=== PATIENT | male | born 1985 | race African-American/Black ===

== ENCOUNTER 2016-08-29 07:00 | Inpatient (IN) | payer OTHER ==
[~2016-08-29] VITALS: Ht 198.1 cm; Wt 121.1 kg
[2016-08-30] VITALS (10 sets, daily range): BP systolic 134–166; BP diastolic 70–104
[2016-08-30] MEDS ORDERED: OXYCODONE HCL15 M1 ORAL (05:54)
[2016-08-30] MEDS ORDERED: oxyCODONE 5mg IR tab ORAL PRN (06:15)
--- NOTE | 2016-08-30 06:39 | Anethesia Preoperative Eval ---
Anesthesia Pre-op PMH/ROS General Date of Evaluation: Aug 30, 2016 Time of Evaluation: 07:26 Anesthesiologist: Jimena ASA Score: ASA 2 Mallampati Score Class I : Soft palate, uvula, fauces, pillars visible Class II: Soft palate, uvula, fauces visible Class III: Soft palate, base of uvula visible Class IV: Only hard plate visible Mallampati Classification: Class II Surgeon: Essie Diagnosis: Back Pain Surgical Procedure: ALIF L4-5, L5-S1, Post Fusion Screws, L4-5, L5-S1 Anesthesia History: none Family History: no anesthesia problems Allergies: Coded Allergies: No Known Allergies (Unverified , 08/28/16) Medications: see eMAR Past Medical History Cardiovascular: Reports: HTN, arrhythmia - Heart Murmur, no Physical limitations. Anesthesia Pre-op Phys. Exam Physician Exam Last Vital Signs Date Time Temp Pulse Resp B/P Pulse Ox O2 Delivery O2 Flow Rate FiO2 08/30/16 05:40 97.6 62 18 134/70 99 Room Air Constitutional: NAD Neurologic: CN 2-12 intact Cardiovascular: RRR Respiratory: CTA Gastrointestinal: S/NT/ND Airway Exam Mallampati Score: Class II MO: full ROM: full Teeth: intact Anesthesia Pre-op A/P Risk Assessment & Plan Assessment: ASA 2 Plan: GA, BIS, Glidescope Status Change Before Surgery: No Pre-Antibiotics Dru Grams Ancef IV Given Within 1 Hr of Incision: Yes Time Given: 07:46 Cornelius Hess MD Aug 30, 2016 06:38
[2016-08-30] MEDS ORDERED: Thrombin 5000 units TOPIC ONE (06:41)
[2016-08-30] MEDS ORDERED: Surgicel 4in x 8in TOPIC ONE (06:41)
[2016-08-30] MEDS ORDERED: Bupivacaine w/Epi 0.5% 30ml Vial INJ ONE (06:42)
[2016-08-30] MEDS ORDERED: Bacitracin 50000 Units Vial ONE (06:42)
[2016-08-30] MEDS ORDERED: Lacri-Lube Opth Oint 3.5gm ONE (06:42)
[2016-08-30] MEDS ORDERED: Heparin 5000 units/ml inj ONE (06:42)
[2016-08-30] MEDS ORDERED: Vancomycin 1gm inj IVPB ONE ×2 (06:43→12:06)
[2016-08-30] MEDS ORDERED: Norco 7.5mg/325mg tab ORAL PRN (06:45)
[2016-08-30] MEDS ORDERED: Midazolam 2mg/2ml Inj IVP PRN (06:45)
[2016-08-30] MEDS ORDERED: Metoclopramide 10mg/2ml Inj IVP PRN (06:45)
[2016-08-30] MEDS ORDERED: Ketorolac 30mg Inj IV PRN (06:45)
[2016-08-30] MEDS ORDERED: DiphenhydrAMINE 50mg/ml Inj IVP PRN (06:45)
[2016-08-30] MEDS ORDERED: LORazepam Inj 2mg/ml 1ml IV PRN (06:45)
[2016-08-30] MEDS ORDERED: Oxycodone/Acetaminophen 5-325 ORAL PRN (06:45)
[2016-08-30] MEDS ORDERED: Meperidine 25mg/ml Inj IV PRN (06:45)
[2016-08-30] MEDS ORDERED: Atropine Inj 1mg/10ml Syr IV PRN (06:45)
[2016-08-30] MEDS ORDERED: Hydromorphone 0.5mg/0.5ml inj IVP PRN (06:45)
[2016-08-30] MEDS ORDERED: Norco 5mg/325mg tab ORAL PRN (06:45)
[2016-08-30] MEDS ORDERED: Labetalol 5mg/ml 20ml vial IV PRN (06:45)
[2016-08-30] MEDS ORDERED: fentaNYL 100 mcg/2 mL IV PRN (06:45)
[2016-08-30] MEDS ORDERED: Ketorolac 60mg Inj IV PRN (06:45)
[2016-08-30] MEDS ORDERED: LR 1000ml 1,000 ML IVLG SCH (07:00)
[2016-08-30] MEDS ORDERED: Dexamethasone 20mg/5ml IVP ONE (07:00)
[2016-08-30] MEDS ORDERED: Propofol 10mg/ml 100ml btl IV ONE (07:00)
[2016-08-30] MEDS ORDERED: ceFAZolin sod 1 GM in NS 55 ML IVPB ONE (07:00)
[2016-08-30] MEDS ORDERED: Acetaminophen (Non formulary) 100 ML IV ONE (07:15)
--- NOTE | 2016-08-30 07:17 | Pre-Procedure Note/Attestation ---
Pre-Procedure Note/Attestation Complete Prior to Procedure Planned Procedure: not applicable Procedure Narrative: anterior interbody reconstruction fusion L4-5 L5-S1 anterior internal fixation L4-5-S1 Posterior Pedicle Screw instrumentation L4-L5-S1 Bilateral Posterolateral Fusion L4-L5-S1 Indications for Procedure Pre-Operative Diagnosis: Post trauma backpain L4-5-S1 L5 spondylolysis L5-S1 I/V spondylolisthesis Attestation I attest that I discussed the nature of the procedure; its benefits; risks and complications; and alternatives (and the risks and benefits of such alternatives ), prior to the procedure, with the patient (or the patient's legal sales representative raw fibers). I attest that, if there was a reasonable possibility of needing a blood transfusion, the patient (or the patient's legal sales representative raw fibers) was given the [place] Department [employer] standardized written summary, pursuant to the Erwin Owen Blood Safety Act ([place] Health and Safety Code # 1645, as amended). I attest that I re-evaluated the patient just prior to the surgery and that there has been no change in the patient's H&P, except as documented below: POPEYE DAWSON Aug 30, 2016 07:17
[2016-08-30] MEDS ORDERED: NS Irrig 1000ml ONE (07:30)
[2016-08-30] MEDS ORDERED: Succinylcholine 20mg/ml 10ml vial ONE (07:30)
[2016-08-30] MEDS ORDERED: Zemuron 50mg/5ml Inj IV ONE (07:30)
[2016-08-30] MEDS ORDERED: fentaNYL 250mcg/5ml ONE (07:30)
[2016-08-30] MEDS ORDERED: Sterile Water Irrig 1000ml IRRIG ONE (07:30)
[2016-08-30] MEDS ORDERED: fentaNYL 100 mcg/2 mL IV ONE (07:30)
[2016-08-30] MEDS ORDERED: Neostigmine 1mg/ml 10ml Inj ONE (07:30)
[2016-08-30] MEDS ORDERED: LR 1000ml ONE (07:30)
[2016-08-30] MEDS ORDERED: Labetalol 5mg/ml 20ml vial IV ONE (07:30)
[2016-08-30] MEDS ORDERED: Dexamethasone 4mg/ml vial ONE (07:30)
[2016-08-30] MEDS ORDERED: Glycopyrrolate 0.2mg/ml 1ml Vial ONE (07:30)
[2016-08-30] MEDS ORDERED: Lidocaine 1% Plain 30 ml INJ ONE (07:30)
[2016-08-30] MEDS ORDERED: Rate Change PCA 1 Each MISC PRN (08:00)
[2016-08-30] MEDS ORDERED: PCA HYDROmorphone 1mg/ml 30 ML IV PRN (08:00)
--- NOTE | 2016-08-30 08:04 | Immediate Post-Op Evaluation ---
Immediate Post-Op Evalulation Immediate Post-Op Evalulation Procedure: ALIF L4-5, L5-S1, Post Fusion Screws, L4-5, L5-S1 Date of Evaluation: Aug 30, 2016 Time of Evaluation: 14:27 IV Fluids: 1500 LR Blood Products: 0 Estimated Blood Loss: 75 Urinary Output: 400 Blood Pressure Systolic: 153 Blood Pressure Diastolic: 94 Pulse Rate: 88 Respiratory Rate: 16 O2 Sat by Pulse Oximetry: 99 Temperature (Fahrenheit): 97.3 Pain Score (1-10): 3 Complications 0 Patient Status: awake, reacts, patent, extubated, none Hydration Status: adequate Dru Grams Ancef IV Given Within 1 Hr of Incision: Yes Time Given: 07:46 Cornelius Hess MD Aug 30, 2016 08:04
--- NOTE | 2016-08-30 08:05 | 48 Hour Post Anesthesia Eval ---
Post Anesthesia Evaluation Procedure: ALIF L4-5, L5-S1, Post Fusion Screws, L4-5, L5-S1 Date of Evaluation: Aug 30, 2016 Time of Evaluation: 16:42 Blood Pressure Systolic: 143 0: 78 Pulse Rate: 77 Respiratory Rate: 18 Temperature (Fahrenheit): 98.3 O2 Sat by Pulse Oximetry: 100 Airway: patent Nausea: No Vomiting: No Pain Intensity: 2 Hydration Status: adequate Cardiopulmonary Status: Stable Mental Status/LOC: patient returned to baseline Follow-up Care/Observations: 0 Post-Anesthesia Complications: 0 Follow-up care needed: N/A Cornelius Hess MD Aug 30, 2016 08:05
[2016-08-30] MEDS ORDERED: Lidocaine 1% 10mg/ml/Epi 0.005mg/ml 30ml vial INJ ONE (13:37)
--- NOTE | 2016-08-30 13:51 | Brief Operative Note ---
Immediate Post Operative Note Operative Note Pre-op Diagnosis: Post trauma backpain L4-5-S1 L5 spondylolysis L5-S1 I/V spondylolisthesis Procedure: Correction Deformity Hemivertebrectomy L4,L5, S1 LT Cage internal fixation, BMP fusion L4-5, L5-S1 SSEP Xray pedicle Scrwe instrumentation L4, L5, S1 Posterolateral Fusion L4-L5-S1 Local Body Habitus. (6''7" >280 lbs. Hemilaminectomy L5 Post-op Diagnosis: same as pre-op Findings: consistent w/pre-op dx studies Surgeon: Essie Jerry Facs Teacher: Daphne FITZGERALD Anesthesiologist: Jimena ROSSI Anesthesia: general Specimen: none Complications: none Condition: stable Estimated Blood Loss: volume - 150 cc POPEYE DAWSON Aug 30, 2016 13:50
--- NOTE | 2016-08-30 14:20 | Diagnostic Imaging Report ---
Indication: PAIN, intraoperative imaging Technique: Intraoperative images Comparison: None Findings: Localizer image demonstrates surgical tools anterior to what are presumably the L5-S1 and L4-5 discs. Subsequent images document anterior fusion at L4-5, placement of disc spacers at L4-5 and L5-S1, and posterior fusion hardware bridging L4-S1. Impression: Intraoperative imaging, as described
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
[2016-08-30] MEDS: PCA shift volume MISC SCH ×2 (15:00→23:00)
[2016-08-30] MEDS: Dronabinol 2.5mg Cap ORAL SCH ×2 (16:43→21:28)
[2016-08-30] MEDS: HYDROmorphone 1mg/ml Carpuject SUBQ PRN (16:58)
[2016-08-30] MEDS: D5 1/2NS 1,000 ML IV SCH (18:12)
[2016-08-30] MEDS: ceFAZolin sod 1 GM in D5W 55 ML IVPB SCH (19:09)
--- NOTE | 2016-08-30 20:49 | Cardiology Progress Note ---
Assessment/Plan Assessment/Plan post traumatic back pain elevated bp soem may be related t o pain he did have mild untreaeted htn as out pt rbbb LVH preop echo normla lv function but had mod LVH lwo dose antihypertensive dvt ppx home when has bm eat when has bm [id number] Objective Last 24 Hour Vital Signs Date Time Temp Pulse Resp B/P Pulse Ox O2 Delivery O2 Flow Rate FiO2 08/30/16 16:45 166/95 08/30/16 16:00 97.5 73 20 166/95 100 Nasal Cannula 3.0 08/30/16 15:35 18 08/30/16 15:25 97.6 78 16 158/89 100 Nasal Cannula 3.0 08/30/16 15:20 16 08/30/16 15:10 80 18 160/89 100 Nasal Cannula 3.0 08/30/16 15:05 15 08/30/16 14:55 79 16 161/93 100 Nasal Cannula 3.0 08/30/16 14:50 16 08/30/16 14:40 83 13 152/93 100 Nasal Cannula 3.0 08/30/16 14:25 85 16 163/104 100 Simple Mask 10.0 08/30/16 14:21 77 18 100 08/30/16 14:20 83 15 155/92 95 Simple Mask 10.0 08/30/16 14:19 88 16 99 08/30/16 14:16 97.3 87 24 153/94 95 Simple Mask 10.0 08/30/16 05:40 97.6 62 18 134/70 99 Room Air Intake and Output 08/29/16 08/30/16 19:00 07:00 # Voids 1 ANTHONY HAMILTON Aug 30, 2016 20:49
[2016-08-30] MEDS: oxyCODONE 5mg IR tab ORAL PRN (21:28)
[2016-08-31] VITALS: BP 136/84
[2016-08-31] MEDS: ceFAZolin sod 1 GM in D5W 55 ML IVPB SCH ×3 (00:35→17:09)
[2016-08-31] MEDS: oxyCODONE 5mg IR tab ORAL PRN ×4 (00:36→11:47)
[2016-08-31] MEDS: D5 1/2NS 1,000 ML IV SCH ×4 (00:44→21:40)
--- NOTE | 2016-08-31 00:48 | Operative Note - Dictated ---
DATE OF OPERATION: 08/30/2016 SURGEON: 1. Jordan Fountain Ph.D. M.D. 2. Jj Jerry M.D., vascular surgery. TILE CLASSIFIER: LIA Anglin. ANESTHESIOLOGIST: Cornelius Hess M.D. ANESTHESIA: General with intubation. PREOPERATIVE DIAGNOSES: Posttraumatic severe lumbosacral back pain, lumbar spine instability with spondylolysis, and spondylolisthesis. POSTOPERATIVE DIAGNOSES: Posttraumatic severe lumbosacral back pain, lumbar spine instability with spondylolysis, and spondylolisthesis. OPERATIVE PROCEDURE: Anterior (please see exposure and closure report dictation by Dr. Jerry with Dr. Fountain assist). L4-L5 interbody reconstruction fusion, bilateral LT cages, bone morphogenic protein, correction of deformity, anterior internal plate fixation L4-L5, hemivertebrectomy, inferior L4, superior L5, inferior L5, superior S1, interbody reconstruction, correction of deformity L5-S1 and bilateral LT cages. Intraoperative fluoroscopy interpreted by surgeons. SSEP monitoring. EMG monitoring. Posterior-separate incision, change of all instrumentation, repositioning of the patient from supine to prone. Pedicle screw instrumentation, L4-L5-S1. Pedicle screw stimulation. Bilateral posterolateral fusion L4-L5-S1. L5 hemilaminotomy bilateral. Local anesthetic applied by surgeon. Patient's body habitus. Increased complexity of surgery/duration of surgery. The patient is 6 foot 7 inches, greater than 250 pounds in weight. Large in shape patient physically not fat. PROCEDURE: The patient was brought to the operating room and in supine position, general anesthesia with intubation was induced. Intravenous antibiotics and intravenous Decadron were administered 30 minutes prior to incision time. After appropriate positioning, the abdomen was sterilely prepped and draped free in usual sterile fashion. Please see exposure and closure operative report Dr. Jerry with Dr. Fountain assist. Identification of L5 and S1 were made with fluoroscopic imaging with markers in place. L5-S1. Hemivertebrectomy, inferior L5, superior S1 was performed with utilization of bilateral LT cages 20 mm in depth and 16 mm in diameter. Bone morphogenic protein within the cages for interbody fusion. Excellent positioning and fixation. Attention was turned to the L4-L5 interval. Annulotomy was performed. Diskectomy to the long posterior longitudinal ligament. Hemivertebrectomy, inferior L4, superior L5. Interpositional grafting with bilateral 16 mm x 23 mm LT cages containing bone morphogenic protein. Anterior internal plate fixation with 2 screws cephalad, 2 screws caudad in a compressive fashion. Screws were placed and locked into position. After the anterior abdomen was closed and bandage, the patient was carefully turned from the prone to supine position. Grafts were incorporated in fibrin glue. Closure Dr. Jerry. The patient was carefully turned from the supine to the prone position with change of operating table. All the instruments were changed. All staff/physicians re-sterilely prepared after patient positioning and the back was sterilely prepped and draped free in usual sterile fashion. A longitudinal incision over the appropriate interval was sharply placed in the dermis and epidermis. Electrocautery dissection was carried through the subcutaneous tissue to the level lumbodorsal fascia incised right and left of midline over the involved intervals. Angulation just deep of the L5 lamina noted with the spondylolisthesis. Transverse processes of L4 and L5 and sacral alar bilaterally exposed. Decorticated. Interpositional grafting for posterolateral fusion with cortical cancellous graft L4-L5-S1. Hemilaminotomy L5 bilaterally. Pedicle screw instrumentation, L4, L5, S1 with fluoroscopic guidance. Excellent positioning. The screws stimulation normal. Interpositional rods clamped into position and torqued appropriately. Wound was copiously irrigated with antibiotic-containing saline. A 2 g of vancomycin powder was placed. Sequential reapproximation of the lumbodorsal fascia followed with drain placement to drain the lumbodorsal fascia and subcutaneous tissue. Subcutaneous tissue was reapproximated with multiple layers of Vicryl suture material. Dermis and epidermis were further reapproximated. Drain was externalized through a separate puncture site. Local anesthetic of bilateral lateral aspects of the wound 1% lidocaine with epinephrine. Sterile bandage was placed after the drain was attached sterilely to a suction bulb. The patient was carefully turned from the prone to supine position on the transport bed where he was awakened, extubated and transported to postoperative recovery in good stable condition. Jordan Fountain M.D. DR: SILVIA JOB#: [id number] CC: RITA
--- NOTE | 2016-08-31 00:58 | Operative Note - Dictated ---
DATE OF OPERATION: 08/30/2016 VASCULAR SURGEON: Jj Jerry M.D. SPINE SURGEON: Jordan Fountain M.D. PREOPERATIVE DIAGNOSIS: Degenerative disk disease. POSTOPERATIVE DIAGNOSIS: Degenerative disk disease. PROCEDURES PERFORMED: 1. Anterior retroperitoneal exposure of L4-5 vertebral interspace. 2. Anterior retroperitoneal exposure of L5-S1 vertebral interspace. INDICATION: The patient is a very pleasant gentleman who was seen prior to surgery. He has been scheduled for anterior fusion of L4-5 and L5-S1. He is approximately 6 feet 7 and weighs over 250 pounds. He has no prior anterior abdominal surgery. No history of deep venous thrombosis or bleeding complications. He has been made aware of the need for large abdominal incision. The need for mobilization of vascular structures and the possibility of vascular injury were carefully discussed. He understands the possible risk for blood transfusion and possible risk of deep venous thrombosis. DESCRIPTION OF FINDINGS: A vertical midline incision was used. A left retroperitoneal approach was used. There was no vascular injury. There was no peritoneal or ureteral violation. There was somewhat transitional anatomy with respect to the iliac vessels. L4-5 was exposed with retraction of the left iliac vessels towards the patient's right; however, it was displaced caudally, and there was somewhat increased traction on the left common iliac vein. However, adequate exposure will be obtained without injury. L5-S1 was oriented very caudally and required extension incision distally to allow for approach. On completion, the patient's peritoneum and ureter were intact. Iliac vessels were intact. Blood loss was 50 mL. There were palpable femoral and dorsalis pedis pulses on completion. DESCRIPTION OF PROCEDURE: The patient was taken to the operating room, and general anesthesia was used. IV antibiotics were given. Liang catheter was placed. The patient's abdomen was prepped and draped. Appropriate time-out procedure was taken. A vertical midline incision was made infraumbilically. The anterior fascia was incised longitudinally midline. A plane was identified posterior to the left rectus abdominis and developed posterolaterally towards the patient's left. The retroperitoneal space was entered below the arcuate line. The peritoneum and ureter were mobilized towards the patient's right exposing the left common iliac vessels. Initially dissection was carried on the undersurface of the left common iliac vein. The median sacral artery and vein were identified and ligated with vascular clips and divided. The soft tissues were mobilized off the anterior surface of L5-S1, and the Omni retractor was set in place. Fluoroscopy was then used to confirm the appropriate level, and then instrumentation and fusion performed at L5-S1 and dictated separately. On completion, retractor was then repositioned above the iliac bifurcation. Dissection was carried on the left side of the left common iliac artery and vein. Overlying lymphatics were ligated with vascular clips. The iliolumbar vein was identified and encircled using a 2-0 silk tie. It was triply ligated proximally and distally with vascular clips and divided. The L4 segmental artery and vein were also identified and ligated with vascular clips. This allowed us to mobilize the left iliac vessels towards the patient's right exposing the anterior surface of L4-5. Once again, the Omni retractor was set in place. Fluoroscopy was used to confirm the appropriate level, and then instrumentation and fusion performed at L4-5 and dictated separately. On completion, retractor was gently removed. The peritoneum and ureter intact. Iliac vessels were intact. Anterior fascia was closed using #1 PDS in running fashion. The skin and subcutaneous tissue were closed using 3-0 Vicryl and 4-0 Monocryl in running subcuticular closure technique. ESTIMATED BLOOD LOSS: Less than 100 mL. COMPLICATION: None. Jj Jerry M.D. DR: DEWEY JOB#: [id number] CC:
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
[2016-08-31] MEDS: HYDROmorphone 1mg/ml Carpuject SUBQ PRN ×3 (03:27→18:37)
[2016-08-31 04:00] VITALS: BP 126/67
[2016-08-31] MEDS: Dronabinol 2.5mg Cap ORAL SCH ×3 (05:41→21:40)
[2016-08-31] MEDS: PCA shift volume MISC SCH ×3 (07:00→17:14)
[2016-08-31 07:55] LABS: BASOPHILS % (AUTO) 0.7 % (0.0-2.0); LYMPHOCYTES % (AUTO) 16.2 % (20.0-45.0); MEAN CORPUSCULAR HEMOGLOBIN 30.2 PG (27.0-31.0); MEAN CORPUSCULAR HGB CONC 34.2 G/DL (32.0-36.0); MEAN CORPUSCULAR VOLUME 88 FL (80-99); MEAN PLATELET VOLUME 9.7 FL (6.5-10.1); NEUTROPHILS % (AUTO) 73.1 % (45.0-75.0); PLATELET COUNT 208 K/UL (150-450); RED CELL DISTRIBUTION WIDTH 11.5 % (11.6-14.8); WHITE BLOOD COUNT 12.8 K/UL (4.8-10.8)
[2016-08-31 08:20] LABS: ALANINE AMINOTRANSFERASE 28 U/L (3-41); ALBUMIN/GLOBULIN RATIO 1.3 (1.0-2.7); ANION GAP 13 (5-15); ASPARTATE AMINO TRANSFERASE 30 U/L (5-40); CALCIUM 8.9 mg/dL (8.6-10.2); CARBON DIOXIDE 27 mEQ/L (20-30); CHLORIDE 95 mEQ/L (98-107); CREATININE 1.1 mg/dL (0.7-1.2); GLOMERULAR FILTRATION RATE > 60 mL/min (>60); HEMOLYSIS 2; POTASSIUM 4.5 mEQ/L (3.4-4.9); SODIUM 135 mEQ/L (135-145); TOTAL PROTEIN 7.1 g/dL (6.6-8.7)
[2016-08-31 08:23] VITALS: BP 121/65
[2016-08-31 12:45] VITALS: BP 147/88
[2016-08-31] MEDS: PCA HYDROmorphone 1mg/ml 30 ML IV PRN ×2 (13:09→17:14)
[2016-08-31] MEDS ORDERED: D5 1/2NS 1000ml IV ONE (13:38)
[2016-08-31 16:00] VITALS: BP 139/74
--- NOTE | 2016-08-31 16:08 | Cardiology Progress Note ---
Assessment/Plan Status: stable, progressing Status Narrative s/p lumbar surgery - post op d1 HTN - mild elevation of BP , possibly due to post op pain Assessment/Plan Continue norvasc for BP control - titrate Continue SHEARER HELPER/ pain management Post op care per Dr. Fountain Subjective ROS Limited/Unobtainable: No Subjective c/o back pain Objective Last 24 Hour Vital Signs Date Time Temp Pulse Resp B/P Pulse Ox O2 Delivery O2 Flow Rate FiO2 08/31/16 13:39 98.0 08/31/16 12:45 98.0 76 18 147/88 99 Room Air 08/31/16 12:00 20 08/31/16 10:37 98.1 08/31/16 08:23 98.1 90 20 121/65 99 Room Air 08/31/16 08:00 18 08/31/16 04:00 97.7 76 20 126/67 99 Nasal Cannula 3.0 08/31/16 04:00 18 08/31/16 01:36 97.3 08/31/16 00:00 18 08/31/16 00:00 98.2 84 20 136/84 99 Nasal Cannula 3.0 08/30/16 21:27 80 166/95 08/30/16 20:00 97.3 84 20 145/79 97 Nasal Cannula 3.0 08/30/16 20:00 18 08/30/16 16:45 166/95 General Appearance: WD/WN, alert, mild distress EENT: PERRL/EOMI Neck: no JVD Rhythm: NSR Cardiovascular: normal rate, regular rhythm, no gallop/murmur Respiratory/Chest: lungs clear, other - clear anteriorly Abdomen: non tender, decreased bowel sounds, tender, other - incision site covered w/ dry dsg Extremities: no swelling Intake and Output 08/30/16 08/31/16 19:00 07:00 Intake Total 1700 ml 1445 ml Output Total 535 ml 3080 ml Balance 1165 ml -1635 ml Intake Oral 410 ml IV Total 1700 ml 1035 ml Output Urine Total 450 ml 2950 ml Drainage Total 10 ml 130 ml Estimated Blood Loss 75 ml Laboratory Tests Test 08/31/16 07:00 White Blood Count 12.8 K/UL (4.8-10.8) H Red Blood Count 4.40 M/UL (4.70-6.10) L Hemoglobin 13.3 G/DL (14.2-18.0) L Hematocrit 38.8 % (42.0-52.0) L Mean Corpuscular Volume 88 FL (80-99) Mean Corpuscular Hemoglobin 30.2 PG (27.0-31.0) Mean Corpuscular Hemoglobin Concent 34.2 G/DL (32.0-36.0) Red Cell Distribution Width 11.5 % (11.6-14.8) L Platelet Count 208 K/UL (150-450) Mean Platelet Volume 9.7 FL (6.5-10.1) Neutrophils (%) (Auto) 73.1 % (45.0-75.0) Lymphocytes (%) (Auto) 16.2 % (20.0-45.0) L Monocytes (%) (Auto) 10.0 % (1.0-10.0) Eosinophils (%) (Auto) 0.0 % (0.0-3.0) Basophils (%) (Auto) 0.7 % (0.0-2.0) Sodium Level 135 mEQ/L (135-145) Potassium Level 4.5 mEQ/L (3.4-4.9) Chloride Level 95 mEQ/L (98-107) L Carbon Dioxide Level 27 mEQ/L (20-30) Anion Gap 13 (5-15) Blood Urea Nitrogen 16 mg/dL (7-23) Creatinine 1.1 mg/dL (0.7-1.2) Estimat Glomerular Filtration Rate > 60 mL/min (>60) Glucose Level 125 mg/dL (74-106) H Calcium Level 8.9 mg/dL (8.6-10.2) Total Bilirubin 0.5 mg/dL (0.0-1.2) Aspartate Amino Transf (AST/SGOT) 30 U/L (5-40) Alanine Aminotransferase (ALT/SGPT) 28 U/L (3-41) Alkaline Phosphatase 51 U/L (40-129) Total Protein 7.1 g/dL (6.6-8.7) Albumin 4.1 g/dL (3.5-5.2) Globulin 3.0 g/dL Albumin/Globulin Ratio 1.3 (1.0-2.7) DAVIN CROWELL Aug 31, 2016 16:08
--- NOTE | 2016-08-31 19:58 | Progress Note ---
DATE: 08/31/2016 ACUTE PAIN MANAGEMENT PHYSICIAN PROGRESS NOTE MEDICATIONS: Medication administration record reviewed. Medications include IV fluids, Protonix, Norvasc, Marinol, antibiotics, JOURNEYMAN PRESS OPERATOR, Dilaudid and p.r.n. medications include Benadryl, Catapres, Cepacol, magnesium citrate, Dilaudid, Mylanta, Phenergan, Soma, Zofran, oxycodone and Narcan. LABORATORY AND DIAGNOSTIC DATA: Laboratory studies from this morning 08/31/2016 shows white count 13, hematocrit 39, and platelets 210,000. Sodium 135, potassium 4.5, chloride 95, bicarbonate 27, BUN 16, creatinine 1.1 and glucose 125. Calcium 8.9. Total bilirubin 0.5. AST 30, ALT 28, and alkaline phosphatase 51. Total protein 7.1. Albumin 4.1. Vital signs, pain level 9/10 on the visual pain scale, afebrile, pulse 90, respirations 20, blood pressure 121/55, and oxygen saturation 99% on supplemental oxygen. I spent over 60 minutes in consultation today. I saw the patient at the bedside with the charge nurse, Lamar PEREZ. I discussed the case with the floor nurse, CHRIS Chand from today's day shift along with the night nurse last night, CHRIS Holder. I also spoke with the surgeon, Dr. Jordan Fountain in detail. There has been no evidence for over-sedation. He has used nearly 2 mg of Dilaudid every hour with his JOURNEYMAN PRESS OPERATOR unit. Additionally, he has been receiving his scheduled Marinol and requesting breakthrough oxycodone and Soma. The patient has a significant pain. He is neurologically intact. Moving all extremities x4. He does have positive bowel sounds, but is not yet passing positive flatus. He will remain NPO except for medications while we await mandaeism of bowel function after his ALIF procedure. The patient does have significant tightness in his back. I did encourage continued use of the p.r.n. medications in combination with a generous dosing with JOURNEYMAN PRESS OPERATOR unit. I will increase JOURNEYMAN PRESS OPERATOR button demand dose with 0.4 mg. We will continue a 12 minute lockout for safety profile. I did encourage continued use of the breakthrough Dilaudid injections. Originally, the patient was hesitant to accept the subcutaneous Dilaudid injection. After receiving a dose, he admits that the extra bolus dose is helpful and he will continue to request the p.r.n. subcutaneous injection. I will increase the dose from 1 mg to 1.5 mg for better analgesia. At home, the patient has been using his oxycodone 15 mg, which is half of a tablet. The patient agrees that he can handle a higher 30 mg dose here after surgery. With his scheduled Marinol and p.r.n. Soma, I believe the patient should be able to advance with physical therapy. We did ask the physical therapist to finding an extra tall front wheel walker, as the patient is 6 foot 7 inches. The patient's , is at the bedside with her two kids, ages 3 and 7. is pleasant. After I reassured them that matters are proceeding as-plan and on schedule after his extensive lumbar spine instrumentation surgery. José Luis Sánchez M.D. DR: BRIONNA JOB#: [id number] CC:
[2016-08-31 20:00] VITALS: BP 132/78
[2016-09-01] VITALS: BP 112/70
[2016-09-01] MEDS: oxyCODONE 5mg IR tab ORAL PRN ×2 (00:23→05:15)
[2016-09-01] MEDS: ceFAZolin sod 1 GM in D5W 55 ML IVPB SCH ×2 (00:28→08:58)
[2016-09-01 04:00] VITALS: BP 139/82
[2016-09-01] MEDS: D5 1/2NS 1,000 ML IV SCH ×4 (05:04→23:47)
[2016-09-01] MEDS: Dronabinol 2.5mg Cap ORAL SCH ×3 (06:00→21:17)
[2016-09-01] MEDS: PCA shift volume MISC SCH (07:16)
[2016-09-01 08:00] VITALS: BP 132/70
[2016-09-01] MEDS: HYDROmorphone 1mg/ml Carpuject SUBQ PRN ×2 (09:07→23:47)
[2016-09-01] MEDS ORDERED: D5 1/2NS 1000ml IV ONE (11:12)
--- NOTE | 2016-09-01 11:43 | General Progress Note ---
Progress Note Progress Note POD 2 limited ambulation PT resolution preop back pain. Incisional Pain only no lower extremity radiculopathy / subjective weakness Hemovac d/c n/c intact bilateral lower extremities bandage clean dry intact abdomen distended - minimal bowel sounds. Minimal flatus last night plam: increase gait training carranza d/princess observe no bed rolon once cleared by PT for transfer - out of bed self ambulation but must be accompanied by nurse anticipate advance diet this evening if bowel movement - No bowel movement - No diet POPEYE Ruvalcaba Sep 01, 2016 11:43
[2016-09-01 12:07] VITALS: BP 145/96
[2016-09-01] MEDS: PCA HYDROmorphone 1mg/ml 30 ML IV PRN ×2 (15:00→21:22)
[2016-09-01 16:00] VITALS: BP 114/64
--- NOTE | 2016-09-01 17:07 | Cardiology Progress Note ---
Assessment/Plan Status: stable, progressing Status Narrative s/p lumbar surgery - post op d2 Progressing w/ ambulation, transitioning to oral meds from STOCK DIGGER HTN - mild elevation of BP , possibly due to post op pain Assessment/Plan continue current dose of norvasc for htn Pain management, post-op care per Dr. Fountain. Subjective ROS Limited/Unobtainable: No Subjective c/o back pain. Ambulating w/ walker Objective Last 24 Hour Vital Signs Date Time Temp Pulse Resp B/P Pulse Ox O2 Delivery O2 Flow Rate FiO2 09/01/16 16:00 18 09/01/16 16:00 98.2 81 20 114/64 93 Room Air 09/01/16 15:30 97.5 09/01/16 15:30 97.5 09/01/16 12:07 97.5 75 20 145/96 98 Room Air 09/01/16 11:15 76 146/95 09/01/16 08:00 97.9 82 20 132/70 96 Room Air 09/01/16 04:00 20 09/01/16 04:00 98.2 91 18 139/82 97 Room Air 09/01/16 00:00 20 09/01/16 00:00 98.6 87 18 112/70 93 Room Air 08/31/16 20:00 18 08/31/16 20:00 97.5 89 19 132/78 96 Room Air 08/31/16 19:07 97.9 08/31/16 17:44 97.9 General Appearance: WD/WN, alert, mild distress EENT: PERRL/EOMI Neck: supple, no JVD Rhythm: NSR Cardiovascular: normal rate, regular rhythm Abdomen: other - Back- incision covered w/ dry dsg. glenys in place Extremities: no swelling Intake and Output 08/31/16 09/01/16 19:00 07:00 Intake Total 900 ml 1660 ml Output Total 1070 ml 1400 ml Balance -170 ml 260 ml Intake Oral 500 ml IV Total 900 ml 1160 ml Output Urine Total 950 ml 1250 ml Drainage Total 120 ml 150 ml Microbiology Date/Time Source Procedure Growth Status 08/30/16 05:30 Nasal Nares MRSA Culture - Final NO METHICILLIN RESISTANT STAPH AUREUS... Complete DAVIN CROWELL Sep 01, 2016 17:07
--- NOTE | 2016-09-01 17:48 | Progress Note ---
DATE: 09/01/2016 ACUTE PAIN MANAGEMENT PHYSICIAN PROGRESS NOTE MEDICATIONS: Medication administration record reviewed. Medications include Phenergan, Protonix, Roxicodone, Zofran, OPERATING ROOM SURGICAL TECHNICIAN Dilaudid, magnesium citrate, p.r.n. Dilaudid, Marinol, Benadryl, Catapres, Cepacol, Soma, Norvasc, and Mylanta. LABORATORY STUDIES: No interval laboratory studies. Yesterday's hematocrit was 39, 08/31/2016. OBJECTIVE: VITAL SIGNS: Afebrile, pulse 82, respirations 20, blood pressure 132/70, and oxygen saturation 93% on room air. I spent over 60 minutes in consultation today. I saw the patient at bedside with the nurse RN, Lamar, along with the patient's and two children. I discussed the case with the surgeon, Dr. Jordan Fountain. The patient continues to use considerable doses of his OPERATING ROOM SURGICAL TECHNICIAN Dilaudid, nearly 20 mg over the past 12 hours. This morning, he does appear to be mildly sedated. Although he does state the pain continues to be severe, he has required less p.r.n. breakthrough medications. Yesterday, I increased the breakthrough subcutaneous Dilaudid shot from 1 mg to 1.5 mg. At this time, I will reduce the dose back down to 1 mg and I will continue the frequency q.3 h. Yesterday, I did increase the oral oxycodone from 15 mg to 30 mg p.r.n. This dose has been tolerated and I will continue the dosing as ordered. I will begin the transition off of the OPERATING ROOM SURGICAL TECHNICIAN unit. I will decrease the OPERATING ROOM SURGICAL TECHNICIAN settings to 0.2 mg with a 10-minute lockout and I have ordered the OPERATING ROOM SURGICAL TECHNICIAN to be stopped tomorrow morning. After anterior lumbar interbody fusion surgery, today on postoperative day #2, the patient does express that he is passing positive flatus. The nurse will contact the surgeon to determine if we may advance his diet to clear liquids presently. The patient does have intermittent nausea. Zofran and Phenergan remain available as rescue antiemetics. The patient is having some significant abdominal bloating and gas pain. I will defer the use of simethicone to the surgeon, Dr. Fountain. The patient will continue on his baseline Marinol q.8 h. on a scheduled basis. The has been very supportive, pleasant, and assisting very well. The patient will remain on IV fluids until his diet is advanced. I have asked the nurse to order incentive spirometer for pulmonary toilet. José Luis Sánchez M.D. DR: MANDY JOB#: [id number] CC:
[2016-09-01 20:00] VITALS: BP 137/70
[2016-09-01] MEDS ORDERED: Rate Change PCA 1 Each MISC PRN (23:30)
[2016-09-02] VITALS: BP 123/67
[2016-09-02] MEDS: HYDROmorphone 1mg/ml Carpuject SUBQ PRN ×3 (03:00→09:51)
[2016-09-02 04:00] VITALS: BP_SYST 131; BP_SYST 133; BP_DIAS 71; BP_DIAS 76
[2016-09-02] MEDS: D5 1/2NS 1,000 ML IV SCH ×3 (05:45→18:49)
[2016-09-02] MEDS ORDERED: Magnesium Citrate Liq Btl ORAL PRN (06:15)
[2016-09-02] MEDS: Dronabinol 2.5mg Cap ORAL SCH ×3 (06:17→22:00)
[2016-09-02] MEDS ORDERED: PCA shift volume MISC SCH ×2 (07:00→15:00)
[2016-09-02] MEDS ORDERED: Naloxone 0.4mg/ml Inj IVP PRN (07:30)
[2016-09-02] MEDS ORDERED: Rate Change PCA 1 Each MISC PRN (07:30)
[2016-09-02] MEDS ORDERED: PCA HYDROmorphone 1mg/ml 30 ML IV PRN (07:30)
[2016-09-02 08:00] VITALS: BP 124/57
[2016-09-02 12:00] VITALS: BP 127/64
[2016-09-02] MEDS: oxyCODONE 5mg IR tab ORAL PRN ×2 (15:25→18:49)
[2016-09-02 16:14] VITALS: BP 163/73
--- NOTE | 2016-09-02 19:38 | Cardiology Progress Note ---
Assessment/Plan Assessment/Plan post traumatic back pain elevated bp Some may be related t o pain he did have mild untreaeted htn as out pt rbbb LVH preop echo normla lv function but had mod LVH low dose antihypertensive dvt ppx will d/w. dr salmeron home tomorrow if ok with pain as well Subjective Cardiovascular: Denies: chest pain, lightheadedness, palpitations Respiratory: Denies: SOB with excertion Gastrointestinal/Abdominal: Reports: other - has faltus adn has had bm , Denies : nausea Genitourinary: Denies: burning Subjective walkign in halls on several occasions Objective Last 24 Hour Vital Signs Date Time Temp Pulse Resp B/P Pulse Ox O2 Delivery O2 Flow Rate FiO2 09/02/16 18:49 96.6 09/02/16 16:14 96.6 111 20 163/73 98 Room Air 09/02/16 12:00 98.0 65 20 127/64 99 Room Air 09/02/16 12:00 20 09/02/16 09:49 91 124/57 09/02/16 08:00 98.8 91 20 124/57 99 Room Air 09/02/16 08:00 20 09/02/16 04:00 97.0 103 18 133/76 94 Room Air 09/02/16 04:00 20 09/02/16 04:00 97.8 88 18 131/71 95 Room Air 09/02/16 00:00 20 09/02/16 00:00 99.0 109 18 123/67 95 Room Air 09/01/16 21:52 98.4 09/01/16 20:00 98.4 92 21 137/70 94 Room Air 09/01/16 20:00 18 General Appearance: no apparent distress, alert, other - sitting up at the bed watchin tv Neck: no JVD Cardiovascular: normal rate, regular rhythm Respiratory/Chest: lungs clear Abdomen: non tender, soft Extremities: no swelling Intake and Output 09/01/16 09/02/16 19:00 07:00 Intake Total 1050 ml 1760 ml Balance 1050 ml 1760 ml Intake Oral 860 ml IV Total 1050 ml 900 ml # Voids 2 2 LOUYAMINI LEYUN Sep 02, 2016 19:38
[2016-09-02 20:30] VITALS: BP 144/77
--- NOTE | 2016-09-03 00:08 | Progress Note ---
DATE: 09/02/2016 ACUTE PAIN MANAGEMENT PHYSICIAN PROGRESS NOTE: MEDICATIONS: Medication administration record reviewed. Medications include Phenergan, Protonix, oxycodone, magnesium citrate, Dilaudid, Marinol, Benadryl, Catapres, Cepacol, Soma, Norvasc, and Mylanta. LABORATORY STUDIES: On 08/31/2016 shows hematocrit 39. OBJECTIVE: VITAL SIGNS: On 09/02/2016, afebrile, pulse 91, respirations 18, blood pressure 144/77, and oxygen saturation 94% on room air. I spent over 60 minutes in consultation today. I discussed the patient's care in detail with the surgeon, Dr. Fountain. I spoke with the day nurse RN, Ivana, along with the night nurse RN, Domonique. I saw the patient at bedside with his . I stopped the AEMT earlier this afternoon. The patient has been tolerating pain level off the AEMT. He continued to require the scheduled Marinol around the clock. His p.r.n. breakthrough medications of subcutaneous Dilaudid, Soma and oxycodone have been used, with less frequency. The patient does have plenty of oxycodone already at home and I have a prescription for Soma 25 tablets for outpatient usage. The patient already had a bowel movement. He has been advancing his diet well without any nausea symptoms. The patient has been using incentive spirometer and continued to increase his ambulation. The patient has asked for a front wheel walker for home usage. I will ask the nurse to contact them supply if available. The patient is 6 foot, 7 and will need an extra-large, extra high walker. Overall, the patient continues to rehabilitated well after his extensive lumbar spine fusion surgery. I will defer discharge planning to the surgeon, Dr. Fountain. Earlier today, the hospitalist, Dr. Saini did examined the patient as well. José Luis Sánchez M.D. DR: Sam JOB#: [id number] CC:
[2016-09-03] MEDS: oxyCODONE 5mg IR tab ORAL PRN ×4 (00:24→15:40)
[2016-09-03 00:58] VITALS: BP 130/55
[2016-09-03] MEDS: Dronabinol 2.5mg Cap ORAL SCH ×2 (05:24→14:11)
--- NOTE | 2016-09-03 07:00 | Progress Note ---
DATE: 09/03/2016 ACUTE PAIN MANAGEMENT PHYSICIAN PROGRESS NOTE MEDICATIONS: Medication administration record reviewed. Medication include Mylanta, Norvasc, Soma, Cepacol, Catapres, Benadryl, Marinol, Dilaudid, magnesium citrate, oxycodone, Protonix, and Phenergan. LABORATORY STUDIES: No interval laboratory studies. OBJECTIVE: VITAL SIGNS: A low-grade fever at 100.2 at 1 a.m., pulse 73, respirations 20, blood pressure 130/85, and oxygen saturation 100% on room air. I spent over 60 minutes in consultation today. I saw the patient at bedside with the nurse RN, Ashely. The patient's remains at the bedside providing good social support. The patient has been able to sleep on each side. The patient still complains of significant tightness and spasm and knotting about the posterior incision area. He does continue to increase his ambulation. With his recent low-grade fever, I did encourage continued aggressive use of incentive spirometer. The patient does smoke marijuana chronically, which certainly contributes to postoperative atelectasis. We will advance the patient's diet to regular today. I have asked the nurse to obtain a front wheel walker for home usage. A bedside shower chair has been provided for outpatient usage already. I gave Soma and he already has oxycodone and marijuana at home for analgesia after surgeon Dr. Fountain determines that he is medically stable to discharge the patient home. José Luis Sánchez M.D. DR: ELVIN JOB#: [id number] CC:
[2016-09-03 08:00] VITALS: BP 152/75
[2016-09-03 12:00] VITALS: BP 143/70
[2016-09-03 16:29] VITALS: BP 143/79
--- NOTE | 2016-09-03 16:31 | Discharge Summary ---
Discharge Summary Hospital Course Date of Admission Aug 30, 2016 at 05:09 Date of Discharge Admitting Diagnosis HPI Ezio Cat is a 30 year old male who was admitted on Aug 30, 2016 at 05:09 for Lumbar Instability Hospital Course [id number] Discharge Condition Upon Discharge: improving Discharge Disposition Patient was discharged to Discharge Diagnoses: ANTHONY HAMILTON Sep 03, 2016 16:31
--- NOTE | 2016-09-03 16:32 | Discharge Instructions ---
Discharge Instructions Discharge Instructions Special Instructions limit you activities as instructed by dr salmeron do not get your wound wet until insturcted by dr salmeron For Congestive Heart Failure Reminder Report to your physician any weight gain of 5 pounds or more in one week. ANTHONY HAMILTON Sep 03, 2016 16:32
[2016-09-03] MEDS ORDERED: NORVASC2.5 MG ORAL (16:33)
[2016-09-03] MEDS ORDERED: Milk of Magnesia 30ml Ud ORAL ONE (17:00)
[2016-09-03] MEDS ORDERED: D5 1/2NS 1000ml IV ONE (18:57)
--- NOTE | 2016-09-04 11:39 | Discharge Summary ---
DATE OF ADMISSION: 08/30/2016 DATE OF DISCHARGE: 09/03/2016 DISCHARGE DIAGNOSES: 1. Posttraumatic back pain. 2. Elevated blood pressure. 3. Right bundle-branch block conduction defect. 4. Left ventricular hypertrophy. This patient was admitted to the hospital after having initial stage surgical procedure by Dr. Fountain. The surgery by Dr. Fountain was correction of deformity; hemivertebrectomies at L4, L5, S1; left cage internal fixation, pedicle screws; and posterolateral fusion at L4, L5, S1; and hemilaminectomy, L5. The patient also subsequently had anterior retroperitoneal exposure for L4-L5 vertebral interspace performed by Dr. Duran to help Dr. Fountain perform this procedure. Postoperatively, he had usual recovery. The patient was seen in pain management consultation by Dr. Sánchez. DVT prophylaxis with the use of pneumatic compression stockings were provided. Pain management was adequate. The patient's blood pressure was monitored. He did have some blood pressure readings that were high; however, because of his elevated preoperative blood pressure readings and left ventricular hypertrophy, I decided to start him on some Norvasc which he will be discharged on at 2.5 mg in addition to the medications that were given by Dr. Sánchez. On the day of discharge, he was doing rather well.. PHYSICAL EXAMINATION: VITAL SIGNS: The temperature at the time of discharge was 98 degrees, blood pressure 143/70, heart rate of 88, and 100% saturation on room air. LUNGS: Clear to auscultation and percussion. CARDIAC: S1 is normal. S2 is normal. Regular rate and rhythm. ABDOMEN: Soft. Dressing is dry. The posterior dressing is also dry and clean. EXTREMITIES: Showed no evidence of edema. DISCHARGE INSTRUCTIONS: He was discharged with specific instructions given by Dr. Fountain for his activity and recommendations that were already provided prior to the procedure by Dr. Fountain as well. He has had a bowel movement. He has been eating. His last bowel movement was yesterday. He wants laxative which he will get prior to his discharge today as well. Zion Saini M.D. DR: Blaine JOB#: [id number] CC:
== END 2016-09-03 18:58 | disposition home or self-care (01) | DRG 455 ==
LOC: SDSOVERFLO 08-30 05:09 → 3E 08-30 15:14
DX: M43.17 Spondylolisthesis, lumbosacral region (principal); I45.10 Unspecified right bundle-branch block; M53.2X6 Spinal instabilities, lumbar region; M47.897 Other spondylosis, lumbosacral region; R03.0 Elevated blood-pressure reading, without diagnosis of hypertension; I51.7 Cardiomegaly; R50.9 Fever, unspecified
CPT/HCPCS: 36415; 72020; 76001; 80053; 85025; 86850; 86900; 86901; 87081; 94003; 94150; J2405; J2710